=== PATIENT | female | born 1985 | race Caucasian/White ===

== ENCOUNTER 2017-03-23 11:19 | Inpatient (IN) | payer OTHER ==
--- NOTE | 2017-03-23 11:44 | EDPHY ---
H & P Time Seen by Provider: 03/23/17 11:28 HPI/ROS: CHIEF COMPLAINT: Overdose HISTORY OF PRESENT ILLNESS: The patient is a 31-year-old female who was at a rehabilitation facility in [place] and according to the ER doctor there overdosed sometime last night on an unknown amount of aspirin as well as 30-40 tablets of baclofen. Also she is prescribed Pristiq and hydroxyzine but it is not known if she overdosed on these. She had a seizure this morning around 8: 00 a.m. the lasted for about 90 sec. She fell forward and hit her face on the ground. She had a head CT in [place] that was read as negative. She had an elevated aspirin level of 62. She is protecting her airway and slightly tachycardic but otherwise stable. She was given 2 amps of bicarb and then started on a bicarb drip at 2:50 a.m. an hour. She is finishing this now. She had a arterial blood gas drawn with a pH of 7.5 but this was after 2 amps of bicarb. Her acetaminophen and alcohol level were 0. Her LFTs were essentially normal. Her CO2 was low at 16. Her creatinine is normal. Here she is somnolescent but arousable. She is confused and cannot tell me what she took or when. No more seizure-like activity. Afebrile. REVIEW OF SYSTEMS: Unable to obtain secondary to condition EXAM: GENERAL: Somnolecent, moderate distress HEAD: Hematoma and abrasions to forehead and nose EYES: Pupils equal round and reactive to light, extraocular movements intact, sclera anicteric, conjunctiva are normal. ENT: TMs normal, nares patent, oropharynx clear without exudates. Moist mucous membranes. NECK: Normal range of motion, supple without lymphadenopathy or JVD. LUNGS: Breath sounds clear to auscultation bilaterally and equal. No wheezes rales or rhonchi. HEART: Regular rate and rhythm without murmurs, rubs or gallops. ABDOMEN: Soft, nontender, normoactive bowel sounds. No guarding, no rebound. No masses appreciated. BACK: No CVA tenderness, no spinal tenderness, step-offs or deformities EXTREMITIES: Normal range of motion, no pitting or edema. No clubbing or cyanosis. NEUROLOGICAL: Cranial nerves II through XII grossly intact. Normal speech, normal gait. /5 strength, normal movement in all extremities, normal sensation PSYCH: Somnolecent, SKIN: Warm, dry, normal turgor, no visible rashes or lesions. Source: Patient, RN/MD Exam Limitations: Clinical condition - Medical/Surgical History Other PMH: Depression, substance abuse - Family History Significant Family History: No pertinent family hx - Social History Alcohol Use: Occasionally Drug Use: Other Constitutional: Initial Vital Signs Temperature (C) 36.8 C 03/23/17 11:19 Heart Rate 100 03/23/17 11:19 Respiratory Rate 18 03/23/17 11:19 Blood Pressure 104/85 H 03/23/17 11:19 O2 Sat (%) 96 03/23/17 11:19 O2 Delivery Mode Room Air Allergies/Adverse Reactions: amoxicillin Allergy (Verified 03/23/17 11:34) sulfamethoxazole [From Bactrim] Allergy (Verified 03/23/17 11:34) trimethoprim [From Bactrim] Allergy (Verified 03/23/17 11:34) Home Medications: Medication Instructions Recorded Unobtainable 03/23/17 Medical Decision Making - Diagnostics EKG Interpretation: An EKG obtained and was read and documented in trace view. Please see trace view for full reading and report. Sinus rhythm, no interval abnormalities ED Course/Re-evaluation: I spoke with poison control. Her case #[id number]. They recommend q.2 hour aspirin and chemistries. They recommend potassium repletion as needed. They recommend we continue the bicarb drip and a measure urine pH with a goal of 7.5- 8. They recommend continuing the bicarb drip until she has 2 consecutive acetaminophen levels below 30 and she is improving clinically. 12:30 p.m. the patient is awake and alert and talking. She is complaining of difficulty breathing through her nose likely from the seizure and trauma. Her potassium is within normal limits. Will begin rebleeding because of her bicarb drip. I discussed the case with Rossana who accepted to the ICU for Dr. Meyer. I will place the patient on an M1. Rufina he wrote that she was on one but we do not see it. Differential Diagnosis: Partial list of the Differential diagnosis considered include but were not limited to; aspirin overdose, acidosis, seizure, suicidality and although unlikely based on the history and physical exam, I also considered infection, intracranial injury, cervical spine injury. Critical Care Time: Critical care time spent by me, Dr. Whelan exclusive with this patient was 45 minutes, exclusive of the PA time exclusive of procedures. The organ system that was at risk was cardiovascular and I gave IV fluids, consultation, the admission, medication to prevent worsening of the patient's condition - Data Points Laboratory Results: Laboratory Results 03/23/17 11:35 03/23/17 11:35 03/23/17 03/23/17 03/23/17 12:00 11:45 11:35 WBC RBC Hgb Hct MCV MCH MCHC RDW Plt Count MPV Neut % (Auto) Lymph % (Auto) [place] % (Auto) Eos % (Auto) Baso % (Auto) Nucleat RBC Rel Count Absolute Neuts (auto) Absolute Lymphs (auto) Absolute Monos (auto) Absolute Eos (auto) Absolute Basos (auto) Absolute Nucleated RBC Immature Gran % Immature Gran # PT 13.9 SEC SEC (12.0-15.0) INR 1.05 (0.83-1.16) APTT 23.9 SEC SEC (23.0-38.0) Puncture Site LEFT RADIAL Patient Temperature 37.0 DEGREES DEGREES pCO2 28 mmHg L mmHg (34-38) pO2 85 mmHg H mmHg (65-75) Total CO2 23 mEq/L mEq/L (23-27) ABG pH 7.50 H (7.35-7.45) ABG PO2/FiO2 Ratio 0 RATIO RATIO ABG HCO3 22 mEq/L mEq/L (22-26) ABG O2 Saturation 97 % H % (92-95) ABG Base Excess 0.0 mEq/L mEq/L (-2.5-2.5) O2 Concentration % ROOM AIR % % (0-100) Sodium Potassium Chloride Carbon Dioxide Anion Gap BUN Creatinine Estimated GFR Glucose Calcium Total Bilirubin Conjugated Bilirubin Unconjugated Bilirubin AST ALT Alkaline Phosphatase Total Protein Albumin Lipase Beta HCG, Qual Urine pH 7.0 (5.0-7.5) Salicylates Urine Opiates Screen NEGATIVE (NEGATIVE) Acetaminophen Urine Barbiturates NEGATIVE (NEGATIVE) Ur Phencyclidine Scrn NEGATIVE (NEGATIVE) Ur Amphetamine Screen NEGATIVE (NEGATIVE) U Benzodiazepines Scrn NEGATIVE (NEGATIVE) Urine Cocaine Screen NEGATIVE (NEGATIVE) U Marijuana (THC) Screen NEGATIVE (NEGATIVE) Ethyl Alcohol 03/23/17 03/23/1717 11:35 11:35 11:35 WBC 14.23 10^3/uL H 10^3/uL (3.80-9.50) RBC 4.35 10^6/uL 10^6/uL (4.18-5.33) Hgb 13.3 g/dL g/dL (12.6-16.3) Hct 37.8 % L % (38.0-47.0) MCV 86.9 fL fL (81.5-99.8) MCH 30.6 pg pg (27.9-34.1) MCHC 35.2 g/dL g/dL (32.4-36.7) RDW 12.3 % % (11.5-15.2) Plt Count 348 10^3/uL 10^3/uL (150-400) MPV 9.5 fL fL (8.7-11.7) Neut % (Auto) 81.6 % H % (39.3-74.2) Lymph % (Auto) 12.9 % L % (15.0-45.0) [place] % (Auto) 4.6 % % (4.5-13.0) Eos % (Auto) 0.1 % L % (0.6-7.6) Baso % (Auto) 0.3 % % (0.3-1.7) Nucleat RBC Rel Count 0.0 % % (0.0-0.2) Absolute Neuts (auto) 11.62 10^3/uL H 10^3/uL (1.70-6.50) Absolute Lymphs (auto) 1.83 10^3/uL 10^3/uL (1.00-3.00) Absolute Monos (auto) 0.65 10^3/uL 10^3/uL (0.30-0.80) Absolute Eos (auto) 0.02 10^3/uL L 10^3/uL (0.03-0.40) Absolute Basos (auto) 0.04 10^3/uL 10^3/uL (0.02-0.10) Absolute Nucleated RBC 0.00 10^3/uL 10^3/uL (0-0.01) Immature Gran % 0.5 % % (0.0-1.1) Immature Gran # 0.07 10^3/uL 10^3/uL (0.00-0.10) PT INR APTT Puncture Site Patient Temperature pCO2 pO2 Total CO2 ABG pH ABG PO2/FiO2 Ratio ABG HCO3 ABG O2 Saturation ABG Base Excess O2 Concentration % Sodium 149 mEq/L H mEq/L (134-144) Potassium 3.7 mEq/L mEq/L (3.5-5.2) Chloride 113 mEq/L H mEq/L (97-110) Carbon Dioxide 23 mEq/l mEq/l (22-31) Anion Gap 13 mEq/L mEq/L (8-16) BUN 15 mg/dL mg/dL (7-23) Creatinine 0.7 mg/dL mg/dL (0.6-1.0) Estimated GFR > 60 Glucose 103 mg/dL H mg/dL (70-100) Calcium 9.0 mg/dL mg/dL (8.5-10.4) Total Bilirubin 0.2 mg/dL mg/dL (0.1-1.4) Conjugated Bilirubin 0.2 mg/dL mg/dL (0.0-0.5) Unconjugated Bilirubin 0.0 mg/dL mg/dL (0.0-1.1) AST 29 IU/L IU/L (14-46) ALT 51 IU/L IU/L (9-52) Alkaline Phosphatase 64 IU/L IU/L (38-126) Total Protein 6.1 g/dL L g/dL (6.3-8.2) Albumin 3.5 g/dL g/dL (3.5-5.0) Lipase 200 IU/L IU/L (23-300) Beta HCG, Qual NEGATIVE Urine pH Salicylates 47.7 mg/dL H mg/dL (2.0-20.0) Urine Opiates Screen Acetaminophen < 10 mcg/mL L mcg/mL (10-30) Urine Barbiturates Ur Phencyclidine Scrn Ur Amphetamine Screen U Benzodiazepines Scrn Urine Cocaine Screen U Marijuana (THC) Screen Ethyl Alcohol < 10 mg/dL mg/dL (0-10) Medications Given: Sodium Bicarbonate 150 meq/ (Dextrose) 1,000 mls @ 200 mls/hr IV CONT NIDA Stop: 09/19/17 13:29 Last Admin: 03/23/17 13:45 Dose: 1,000 mls Discontinued Medications Potassium Chloride 10 meq/ (Sodium Chloride) 100 mls @ 100 mls/hr IV EDNOW ONE Stop: 03/23/17 13:44 Last Admin: 03/23/17 13:00 Dose: 100 mls Departure - Departure Disposition: [facility] Acute Clinical Impression: Attempted suicide Aspirin overdose Qualifiers: Encounter type: initial encounter Injury intent: intentional self-harm Qualified Code(s): T39.012A - Poisoning by aspirin, intentional self-harm, initial encounter Condition: Critical
[2017-03-23 11:46] LABS: % IMMATURE GRANULYOCYTES 0.5 % (0.0-1.1); ABSOLUTE IMMATURE GRANULOCYTES 0.07 10^3/uL (0.00-0.10); ADD DIFF? NO; ADD MORPH? NO; ADD SCAN? NO; ATYPICAL LYMPHOCYTE FLAG 10 (0-99); FRAGMENT RBC FLAG 0 (0-99); HEMATOCRIT 37.8 % (38.0-47.0); HEMOGLOBIN 13.3 g/dL (12.6-16.3); LEFT SHIFT FLG 0 (0-99); LIPEMIA HEMOLYSIS FLAG 90 (0-99); MEAN CELL HEMOGLOBIN 30.6 pg (27.9-34.1); MEAN CELL HEMOGLOBIN CONCENTR. 35.2 g/dL (32.4-36.7); MEAN CELL VOLUME 86.9 fL (81.5-99.8); MEAN PLATELET VOLUME 9.5 fL (8.7-11.7); PLATELET CLUMPS FLAG 10 (0-99); PLATELET COUNT 348 10^3/uL (150-400); RED BLOOD CELL COUNT 4.35 10^6/uL (4.18-5.33); RED CELL DISTRIBUTION WIDTH 12.3 % (11.5-15.2)
--- NOTE | 2017-03-23 11:53 | CPEKG ---
Heart Rate: 95 RR Interval: 632 P-R Interval: 172 QRSD Interval: 92 QT Interval: 372 QTC Interval: 468 P [place]: 84 QRS [place]: 67 T Wave [place]: 63 EKG Severity - NORMAL ECG - EKG Impression: SINUS RHYTHM Electronically Signed By: Sunny Whelan 23-Mar-2017 12:09:06
[2017-03-23 11:57] LABS: BICARBONATE 22 mEq/L (22-26); MEASURED OXYGEN SATURATION 97 % (92-95); O2 CONCENTRATIION ROOM AIR % (0-100); P/F RATIO 0 RATIO; PCO2 28 mmHg (34-38); PO2 85 mmHg (65-75); TCO2 23 mEq/L (23-27)
[2017-03-23 12:01] LABS: ALANINE AMINOTRANSFERASE 51 IU/L (9-52); ALBUMIN 3.5 g/dL (3.5-5.0); ALKALINE PHOSPHATASE 64 IU/L (38-126); ANION GAP 13 mEq/L (8-16); ASPARTATE AMINOTRANSFERASE 29 IU/L (14-46); BILIRUBIN,TOTAL 0.2 mg/dL (0.1-1.4); BILIRUBIN-CONJUGATED 0.2 mg/dL (0.0-0.5); CARBON DIOXIDE 23 mEq/l (22-31); CHLORIDE 113 mEq/L (97-110); CREATININE 0.7 mg/dL (0.6-1.0); ETHANOL SERUM < 10 mg/dL (0-10); GLOMERULAR FILTRATION RATE > 60; GLUCOSE 103 mg/dL (70-100); INR 1.05 (0.83-1.16); POTASSIUM 3.7 mEq/L (3.5-5.2); PROTIME(PATIENT) 13.9 SEC (12.0-15.0); SODIUM 149 mEq/L (134-144); TOTAL PROTEIN 6.1 g/dL (6.3-8.2)
[2017-03-23 12:02] LABS: APTT 23.9 SEC (23.0-38.0)
[2017-03-23 12:20] LABS: SALICYLATE 47.7 mg/dL (2.0-20.0)
[2017-03-23] MEDS ORDERED: POTASSIUM Cl (KCl) 100 ML IV ONE (12:20)
[2017-03-23] MEDS ORDERED: ACETAMINOPHEN 325 MG TAB PO PRN (12:33)
[2017-03-23] MEDS ORDERED: ONDANSETRON DISINTEGRATING 4 MG TAB PO PRN (12:33)
[2017-03-23] MEDS ORDERED: ONDANSETRON 4 MG/2 ML VIAL IVP PRN (12:33)
[2017-03-23] MEDS ORDERED: POTASSIUM Cl (KCl) 10 MEQ in NS 100 ML IV ONE (12:45)
[2017-03-23] MEDS ORDERED: SODIUM BICARBONATE 150 MEQ in D5W 1,000 ML IV SCH (13:30)
--- NOTE | 2017-03-23 13:37 | GHP ---
[f rep st] HISTORY AND PHYSICAL DATE OF ADMISSION: 03/23/2017 CHIEF COMPLAINT: Overdose. HISTORY OF PRESENT ILLNESS: A 31-year-old female with a longstanding history of depression and per h er report, five previous attempts at suicide using medication who [facility] today [facility] by emergency transport after taking an unknown amount of aspirin as well as 30 to 40 tab lets of baclofen. Patient has also home medications that include Pristiq and hydroxyzine but does no t report having taken those. Her attempts in the past have included aspirin, Tylenol and other medic ation she has been prescribed. She was noted to have a seizure at 8 o'clock this morning that lasted witnessed for approximately 90 seconds. She fell forward, hither face on the ground, was stabilized by EMS and brought to the Emergency Department for evaluation. In the ED, endorsing headache and fa cial discomfort as well as congestion. Denying chest pain, shortness of breath. Denying nausea, abd ominal discomfort, myalgias, arthralgias. PAST MEDICAL HISTORY: 1. Depression with previous suicide attempts. 2. Substance abuse. SOCIAL HISTORY: Patient lives at a rehabilitation facility currently. Smokes daily. Denies alcohol and illicit drugs. FAMILY HISTORY: Positive for a father who had attempted suicide. REVIEW OF SYSTEMS: A 10-point review of systems is negative with the exception of that reported in t he HPI. PHYSICAL EXAMINATION: VITAL SIGNS: Blood pressure 124/71, heart rate 102, respiratory rate 10, 95% on room air, 36.8. GENERAL: This is a young female, lying back in bed. HEENT: Exam is notable for a large bump on her mid forehead which has not developed any discoloration at this point, as well as a hematoma on the bridge of her nose. Mucous membranes appear dry. Eye exam is negative for any ict erus. CARDIAC: Patient is regular rate and rhythm. PULMONARY: Good respiratory effort. Clear to auscultation bilaterally. GASTROINTESTINAL: Positive bowel sounds. ABDOMEN: Soft and nontender. M USCULOSKELETAL: Negative for any lower extremity edema. SKIN: Negative for any rashes. NEUROLOGIC: She seems somnolent but oriented. PSYCHIATRIC: Has a flat affect and appears depressed. DATA: EKG, which I personally reviewed and interpreted, shows sinus rhythm, normal axis, normal inte rvals with no acute ST-T changes. LABORATORY: White count 14.2, hematocrit 37.8 platelets of 384, sodium is 149, chloride 113, creatin ine 0.7, bicarbonate 23. Liver function tests are normal. Lipase is 200. test is negativ e. Salicylate level is 47.7, acetaminophen is less than 10. Alcohol is less than 10 and the rest of her drug screen is negative. ASSESSMENT AND PLAN: This is a 31-year-old female, presenting with intentional salicylate overdose. 1. Acute salicylate overdose. The patient initially presenting without acidosis, was treated alread y with 2 amps of bicarbonate. Will be initiated on a bicarb drip. Three amps per L D5 running at 200 /hour. Will be titrating that drip to a urine pH of 7.5 to 8. Follow q.2 BMP, salicylate levels and urine pHs. Patient is currently protecting her airway. We will continue to monitor in the intensiv e care unit. 2. Intentional suicide attempt. Patient has history of depression with multiple attempts. She has been placed on an M1 hold. Will consult Psychiatry when the patient is medically cleared. 3. Prophylaxis with Lovenox. 4. Diet, regular while she is protecting her airway. DISPOSITION: Expecting greater than 2 midnights. The patient is presenting with a dangerous intenti onal overdose requiring close monitoring of her acid base and then psychiatric evaluation. I have di scussed the case with the Emergency Room physician. Patient will be triaged to the ICU for care. /[id number]/MODL
[2017-03-23 14:32] LABS: ANION GAP 12 mEq/L (8-16); CALCIUM 8.4 mg/dL (8.5-10.4); CARBON DIOXIDE 21 mEq/l (22-31); CHLORIDE 113 mEq/L (97-110); CREATININE 0.8 mg/dL (0.6-1.0); GLOMERULAR FILTRATION RATE > 60; GLUCOSE 91 mg/dL (70-100); POTASSIUM 3.4 mEq/L (3.5-5.2); SODIUM 146 mEq/L (134-144)
[2017-03-23 14:47] LABS: SALICYLATE 48.4 mg/dL (2.0-20.0)
--- NOTE | 2017-03-23 15:22 | PDMN ---
Medical Necessity Medical necessity: Pt meets INPT criteria per MD and [facility] M-153 Drug Ingestion or OD (acute salicylate overdose requiring ICU monitoring, bicarb drip per H&P).
[2017-03-23 17:04] LABS: ANION GAP 12 mEq/L (8-16); CALCIUM 8.5 mg/dL (8.5-10.4); CARBON DIOXIDE 21 mEq/l (22-31); CHLORIDE 112 mEq/L (97-110); CREATININE 0.8 mg/dL (0.6-1.0); GLOMERULAR FILTRATION RATE > 60; GLUCOSE 89 mg/dL (70-100); POTASSIUM 3.6 mEq/L (3.5-5.2); SODIUM 145 mEq/L (134-144)
[2017-03-23] MEDS ORDERED: CHARCOAL/SORBITOL SOLUTION 25 GM/120 ML TUBE PO ONE (18:10)
[2017-03-23] MEDS ORDERED: PROTOCOL POTASSIUM 1 DOSE MISC PRN (18:10)
[2017-03-23] MEDS ORDERED: PROTOCOL MAGNESIUM 1 DOSE IV PRN (18:10)
[2017-03-23] MEDS ORDERED: SODIUM BICARBONATE IV SCH (18:30)
[2017-03-23] MEDS ORDERED: POTASSIUM CL IV SCH (18:30)
[2017-03-23] MEDS ORDERED: D5W IV SCH (18:30)
[2017-03-23 19:10] LABS: ANION GAP 12 mEq/L (8-16); CALCIUM 7.9 mg/dL (8.5-10.4); CARBON DIOXIDE 22 mEq/l (22-31); CHLORIDE 111 mEq/L (97-110); CREATININE 0.9 mg/dL (0.6-1.0); GLOMERULAR FILTRATION RATE > 60; GLUCOSE 85 mg/dL (70-100); POTASSIUM 2.8 mEq/L (3.5-5.2); SODIUM 145 mEq/L (134-144)
[2017-03-23] MEDS ORDERED: POTASSIUM CL 20 MEQ TAB ONE (19:21)
[2017-03-23 19:27] LABS: SALICYLATE 37.1 mg/dL (2.0-20.0)
[2017-03-23] MEDS ORDERED: POTASSIUM CL 20 MEQ TAB PO ONE ×2 (19:30→22:00)
[2017-03-23 21:21] LABS: ANION GAP 11 mEq/L (8-16); CALCIUM 8.4 mg/dL (8.5-10.4); CARBON DIOXIDE 23 mEq/l (22-31); CHLORIDE 111 mEq/L (97-110); CREATININE 0.9 mg/dL (0.6-1.0); GLOMERULAR FILTRATION RATE > 60; GLUCOSE 95 mg/dL (70-100); POTASSIUM 2.9 mEq/L (3.5-5.2); SALICYLATE 34.2 mg/dL (2.0-20.0); SODIUM 145 mEq/L (134-144)
[2017-03-23 23:32] LABS: ANION GAP 9 mEq/L (8-16); CARBON DIOXIDE 24 mEq/l (22-31); CHLORIDE 109 mEq/L (97-110); CREATININE 0.9 mg/dL (0.6-1.0); GLOMERULAR FILTRATION RATE > 60; GLUCOSE 99 mg/dL (70-100); POTASSIUM 3.1 mEq/L (3.5-5.2); SALICYLATE 25.5 mg/dL (2.0-20.0); SODIUM 142 mEq/L (134-144)
[2017-03-24] MEDS ORDERED: POTASSIUM CL 20 MEQ TAB PO ONE ×2 (00:15→08:22)
[2017-03-24 02:12] LABS: ANION GAP 9 mEq/L (8-16); CALCIUM 7.9 mg/dL (8.5-10.4); CARBON DIOXIDE 26 mEq/l (22-31); CHLORIDE 109 mEq/L (97-110); CREATININE 0.9 mg/dL (0.6-1.0); GLOMERULAR FILTRATION RATE > 60; GLUCOSE 97 mg/dL (70-100); POTASSIUM 3.3 mEq/L (3.5-5.2); SALICYLATE 18.4 mg/dL (2.0-20.0); SODIUM 144 mEq/L (134-144)
[2017-03-24] MEDS ORDERED: POTASSIUM CL 10 MEQ TAB PO ONE (02:45)
--- NOTE | 2017-03-24 04:31 | GCON ---
[f rep st] CONSULTATION PULMONARY/CRITICAL CARE CONSULTATION REASON FOR CONSULTATION: Salicylate overdose, suicide attempt. HISTORY: The patient is a 31-year-old with a history of depression and previous suicide attempts. She has been at [facility] and other facilities previously. She took an unknown amount of aspirin and baclofen today. She apparently had a seizure earlier this morning. She did strike her face with this. She was brought to the emergency department by the paramedics. She has been somnolent but is less so throughout the day, arousable, and responsive. She has been treated with a bicarbonate drip. She has not gotten any charcoal to this point secondary to concerns about swallowing. PAST MEDICAL HISTORY: Remarkable for depression. There is a history of substance abuse. DRUG ALLERGIES: Sulfa preparations, amoxicillin, trimethoprim. SOCIAL HISTORY: The patient lives in a rehabilitation facility. She has a supportive mother, who is here with her. She smokes cigarettes daily. Alcohol and drugs are denied. FAMILY HISTORY: Positive for depression and suicide in her father. REVIEW OF SYSTEMS: A 10-point review of systems is negative except as mentioned above. PHYSICAL EXAMINATION: GENERAL: Reveals a young woman who initially is covering herself up. VITAL SIGNS: Blood pressure is 90/55, heart rate 95 with sinus rhythm on the monitor. Respiratory rate is 16. She is afebrile. She is requiring no oxygen. HEENT: Remarkable for minor trauma over her nose and some minor abrasions on her face. Pupils appear equal. Mucous membranes are dry. NECK: There is no jugular venous distention, lymphadenopathy, or thyromegaly. CHEST: Clear bilaterally. There are no rales. HEART: Mildly hyperdynamic. There is a soft systolic murmur; no gallops. ABDOMEN: Soft and nontender. Bowel sounds are present, but diminished. A Yeboah catheter is in place. Urine output is good. NEUROLOGIC: Nonfocal. She moves all extremities equally, arouses, answers questions, and responds appropriately to commands. DATABASE: Salicylate level on admission was 47. Serial values have grown slightly, 48 and most recently 52. Tox screen is otherwise negative. Acetaminophen is negative. White blood cell count is 14,000, hematocrit 37, platelets 348,000. PT and PTT were normal on admission. Arterial blood gas showed a pH of 7.50, pCO2 of 28, and pO2 of 85 on room air. Bicarbonate was 23. Most recent chemistry shows sodium of 145, potassium of 3.6, CO2 of 21 with a chloride of 112. BUN is 15 with creatinine 0.8. Liver function studies were normal. Urine pH is 7. ASSESSMENT: 1. Drug overdose. The patient has taken an intentional drug overdose, including salicylates. This is a significant overdose, with elevation of salicylate levels and a seizure prior to her arrival in the hospital. She has a respiratory alkalosis and a mild metabolic acidosis consistent with her salicylate ingestion. She is on a bicarbonate drip. Placing potassium in this drip is recommended by Poison Control. Also, Poison Control is recommending charcoal for the possibility of retained gastric aspirin tablets in light of her rising levels. Now that she is waking up and can take oral fluids safely, charcoal can be given. 2. Suicide attempt. She has a long history of depression and previous suicide attempts. She is on an M1 hold. 3. Metabolic: Hypokalemia. Potassium will be placed in her IV, and she will be put on the replacement protocol. 4. Deep vein thrombosis prophylaxis: On enoxaparin. 5. Gastrointestinal prophylaxis: None currently. Pantoprazole will be added. PLAN/RECOMMENDATIONS: Please see the comments above. The patient will be kept in the intensive care unit on an M1 hold. A bicarbonate drip will be continued. Potassium will be added to this. Potassium supplementation will be given per protocol, in addition to the IV potassium. Charcoal will be given now that she is taking orals safely. Electrolytes will be monitored every 2 hours, along with a salicylate level and urine pH. A chest x-ray will be obtained in the a.m. Further plans and recommendations will be made based on her progress over the next 12-24 hours. /[id number]/MODL and [id number], 03/23/17, [address] [facility]
[2017-03-24] MEDS: HYDROCODONE/APAP 5/325 TAB PO PRN ×4 (05:08→21:35)
[2017-03-24 05:18] LABS: % IMMATURE GRANULYOCYTES 0.2 % (0.0-1.1); ABSOLUTE IMMATURE GRANULOCYTES 0.02 10^3/uL (0.00-0.10); ADD DIFF? NO; ADD MORPH? NO; ADD SCAN? NO; ATYPICAL LYMPHOCYTE FLAG 40 (0-99); FRAGMENT RBC FLAG 0 (0-99); HEMATOCRIT 34.7 % (38.0-47.0); HEMOGLOBIN 12.3 g/dL (12.6-16.3); LEFT SHIFT FLG 0 (0-99); LIPEMIA HEMOLYSIS FLAG 90 (0-99); MEAN CELL HEMOGLOBIN 31.4 pg (27.9-34.1); MEAN CELL HEMOGLOBIN CONCENTR. 35.4 g/dL (32.4-36.7); MEAN CELL VOLUME 88.5 fL (81.5-99.8); MEAN PLATELET VOLUME 9.5 fL (8.7-11.7); PLATELET CLUMPS FLAG 0 (0-99); PLATELET COUNT 278 10^3/uL (150-400); RED BLOOD CELL COUNT 3.92 10^6/uL (4.18-5.33); RED CELL DISTRIBUTION WIDTH 12.7 % (11.5-15.2)
[2017-03-24 05:27] LABS: ANION GAP 9 mEq/L (8-16); CALCIUM 7.9 mg/dL (8.5-10.4); CARBON DIOXIDE 26 mEq/l (22-31); CHLORIDE 107 mEq/L (97-110); CREATININE 0.8 mg/dL (0.6-1.0); GLOMERULAR FILTRATION RATE > 60; GLUCOSE 110 mg/dL (70-100); MAGNESIUM 1.9 mg/dL (1.6-2.3); POTASSIUM 3.8 mEq/L (3.5-5.2); SODIUM 142 mEq/L (134-144)
[2017-03-24 08:01] LABS: POTASSIUM 3.6 mEq/L (3.5-5.2)
[2017-03-24] MEDS ORDERED: ENOXAPARIN 40 MG/0.4 ML SYR SC SCH (09:00)
--- NOTE | 2017-03-24 09:51 | ASMTCASEMG ---
Living Arrangements What is your living Answers: Alone arrangement? Who do you live with? Type Of Residence What kind of residence do Answers: Correction you live in? Type of Residence Facility Name Notes: Patient reports living in a rehabilitation facility presently. Discharge Plan Comments Coordination Status Comments Notes: Patient is a 31yo female with a longstanding hx of depression and 5 previous suicide attempts using medication. Patient was brought by ambulance from her rehab facility for taking an unknown amount of aspirin as well as 30-40 tablets of baclofen. Patient is on an M1 hold. When medically clear, patient will get a psych eval. Most likely patient will d/c to a behavioral health unit. CM available if d/c needs arise. Date Signed: 03/24/2017 09:51 AM Electronically Signed By:Maria Eugenia Quigley LCSW
[2017-03-24 12:54] LABS: ANION GAP 9 mEq/L (8-16); CALCIUM 8.5 mg/dL (8.5-10.4); CARBON DIOXIDE 24 mEq/l (22-31); CHLORIDE 109 mEq/L (97-110); CREATININE 0.8 mg/dL (0.6-1.0); GLOMERULAR FILTRATION RATE > 60; GLUCOSE 96 mg/dL (70-100); POTASSIUM 4.4 mEq/L (3.5-5.2); SALICYLATE 3.1 mg/dL (2.0-20.0); SODIUM 142 mEq/L (134-144)
--- NOTE | 2017-03-24 13:35 | PDINTPN ---
Firmware Architect Progress Note Assessment/Plan: Assessment: Suicide attempt, depression. On M1 hold. Aspirin overdose, resolving. Hypokalemia: On replacement protocol. Plan: Continue care in the intensive care unit for now on M1 hold. Stop bicarb drip. Continue to follow electrolytes and aspirin level. If if her aspirin level stays down and electrolytes stable she can perhaps be medically cleared later today for evaluation by Psychiatry. 25 min of critical care time spent directly with the patient. Discussed with the patient's mother, the patient, hospitalist, nursing, and the ICU multi disciplinary team. Subjective: Feels better, still not hungry. Denies pain, denies shortness of breath. Objective: Vital Signs Temp Pulse Resp BP Pulse Ox 36.7 C 85 12 99/63 L 95 03/24/17 12:00 03/24/17 12:00 03/24/17 12:00 03/24/17 12:00 03/24/17 12:00 Laboratory Results 03/24/17 05:00 03/24/17 12:00 03/23/17 03/24/17 03/25/17 05:59 05:59 05:59 Intake Total 3142 Output Total 2275 Balance 867 PT 13.9 SEC (12.0-15.0) 03/23/17 11:35 INR 1.05 (0.83-1.16) 03/23/17 11:35 Laboratory Tests 03/24/17 03/24/17 03/24/17 01:50 12:00 12:00 Urine pH 9.0 H Salicylates 18.4 3.1 Physical Exam - Physical Exam General Appearance: alert, no apparent distress EENT: PERRL/EOMI Neck: normal inspection Respiratory: lungs clear, normal breath sounds Cardiac/Chest: regular rate, rhythm Abdomen: normal bowel sounds, non-tender, soft Pelvic Exam: other (Yeboah catheter in place, to come out) Skin: normal color, warm/dry Extremities: No pedal edema Neuro/Psych: no motor/sensory deficits, No cognition abnormalities ICD10 Worksheet Patient Problems: Problems Problem Status Onset Aspirin overdose Acute Attempted suicide Acute
--- NOTE | 2017-03-24 15:04 | ASMTCMCOM ---
CM Note CM Note Notes: Spoke with Telma Campuzano, RN at [facility] where Bridgett was living when she took the overdose. Telma called to let us know they cannot take the patient back due to her mental health issues. Telma also asked if Baclofen showed up in any of her labs. We did not run any tests for this. Telma was concerned if this medicine was in her system, she may have gotten it from their safe.She was informed we could not verify Baclofen in her system. Telma stated her case management staff would help with finding placement for patient. However, patient will most likely leave the hospital and go to a behavioral health program. Telma's number ([phone]). The case management phone numbers are [phone] and/or [phone]. [facility] is located in [place]. CM will follow. Date Signed: 03/24/2017 03:04 PM Electronically Signed By:Maria Eugenia Quigley LCSW
[2017-03-24 15:38] LABS: ANION GAP 7 mEq/L (8-16); CALCIUM 8.4 mg/dL (8.5-10.4); CARBON DIOXIDE 22 mEq/l (22-31); CHLORIDE 111 mEq/L (97-110); CREATININE 0.7 mg/dL (0.6-1.0); GLOMERULAR FILTRATION RATE > 60; GLUCOSE 101 mg/dL (70-100); POTASSIUM 4.5 mEq/L (3.5-5.2); SALICYLATE 1.1 mg/dL (2.0-20.0); SODIUM 140 mEq/L (134-144)
--- NOTE | 2017-03-24 16:20 | HOSPPROG ---
Hospitalist Progress Note Assessment/Plan: # acute intentional aspirin overdose- presented with salicylate level >50- oxygen saturations 94% on room air Telemetry(personally reviewed and interpreted) sinus rhythm Has been treated with bicarb drip overnight and close monitoring- salicylate level 1.1 currently - will DC bicarb drip - medically clear for psychiatric evaluation # suicide attempt- this patient has had multiple suicide attempts using medications in the past - medically clear - will consult Psychiatry now # head trauma- secondary to seizure fall with overdose- CT head negative for intracranial process - continue p.r.n. med # diet-regular # disposition greater than 2 midnights presents acutely ill requiring ICU monitoring for salicylate overdose I have discussed case with Dr. Uribe we will medically clear the patient for psychiatric evaluation Subjective: Denies pain Objective: Vital Signs Temp Pulse Resp BP Pulse Ox 36.7 C 84 18 95/60 L 96 03/24/17 12:00 03/24/17 14:00 03/24/17 14:00 03/24/17 14:00 03/24/17 14:00 Laboratory Results 03/24/17 05:00 03/24/17 15:10 03/23/17 03/24/17 03/25/17 05:59 05:59 05:59 Intake Total 3142 Output Total 2275 Balance 867 PT 13.9 SEC (12.0-15.0) 03/23/17 11:35 INR 1.05 (0.83-1.16) 03/23/17 11:35 - Physical Exam Constitutional: no apparent distress Eyes: anicteric sclera Ears, Nose, Mouth, Throat: moist mucous membranes Cardiovascular: regular rate and rhythym Respiratory: no respiratory distress Gastrointestinal: normoactive bowel sounds Genitourinary: no bladder fullness Skin: warm Musculoskeletal: No asymmetric calves Neurologic: AAOx3 Psychiatric: depressed, flat affect Lymph, Heme, Immunologic: no cervical LAD ICD10 Worksheet Patient Problems: Problems Problem Status Onset Aspirin overdose Acute Attempted suicide Acute
[2017-03-24 21:01] VITALS: BP 116/71; PULSE 81; RESP 15; TEMP 98.3; O2SAT 95
== END 2017-03-25 00:40 | DRG 918 ==
LOC: EDUNIT# → EEVIPCON 12:31 → F2N 13:45
PROVIDERS: ADMIT Student in an Organized Health Care Education/Training Program; ATTEND Student in an Organized Health Care Education/Training Program
DX: T39.012A Poisoning by aspirin, intentional self-harm, initial encounter (principal); E87.2 Acidosis; T42.8X2A Poisoning by antiparkinsonism drugs and other central muscle-tone depressants, intentional self-harm, initial encounter; F32.9 Major depressive disorder, single episode, unspecified; T39.092A Poisoning by salicylates, intentional self-harm, initial encounter; E87.6 Hypokalemia; Z72.0 Tobacco use
CPT/HCPCS: 80305; G0480; J1650

== ENCOUNTER 2017-03-25 01:00 | Inpatient (IN) | payer OTHER ==
[2017-03-25] MEDS ORDERED: NICOTINE POLACRILEX 2 MG GUM B PRN (01:21)
[2017-03-25] MEDS ORDERED: MAGNESIUM HYDROXIDE 30 ML UDCUP PO PRN (01:21)
[2017-03-25] MEDS ORDERED: LORazepam 0.5 MG TAB PO PRN (01:22)
[2017-03-25] MEDS ORDERED: MAG HYDROX/AL HYDROX/SIMETH 30 ML UDCUP PO PRN (01:22)
[2017-03-25] MEDS ORDERED: IBUPROFEN 200 MG TAB PO PRN (01:23)
[2017-03-25] MEDS: ACETAMINOPHEN 325 MG TAB PO PRN ×3 (01:28→18:22)
[2017-03-25] MEDS: FERROUS SULFATE 325 MG TAB PO SCH ×2 (12:14→20:39)
[2017-03-25] MEDS: FOLIC ACID 1 MG TAB PO SCH (12:14)
[2017-03-25] MEDS ORDERED: SENNOSIDES/DOCUSATE SODIUM TAB PO PRN (12:41)
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
[2017-03-25] MEDS: NICOTINE 21 MG/24 HR PATCH TD SCH (13:16)
--- NOTE | 2017-03-25 14:16 | BCON ---
[f rep ] BEHAVIORAL HEALTH CONSULTATION INTERNAL MEDICINE CONSULTATION DATE OF CONSULTATION: 03/25/2017 REFERRING PHYSICIAN: Amina Wang MD REASON FOR REFERRAL: Medical clearance for inpatient behavioral health stay. HISTORY OF PRESENT ILLNESS: This patient was at a sober living facility in [place] when she overdosed on aspirin and baclofen. She had a fall, hit her head and had a seizure, I am not sure in what order. She had brain imaging done reportedly in [place] which ruled out any bleed or significant fractures and came to [facility] for treatment of the overdose. In the hospital , she was treated with a bicarbonate drip for the aspirin overdose and with activated charcoal. Her salicylate level came down to normal and she was considered medically stable and appropriate for transfer to inpatient Behavioral Health. She is currently without any acute complaints other than having a desire to smoke a cigarette and she reports that it is painful for her to chew the nicotine gum due to her head trauma. PAST MEDICAL HISTORY: 1. Depression with previous suicide attempts. 2. Polysubstance abuse. 3. Irritable bowel syndrome. MEDICATIONS: 1. Pristiq. 2. Hydroxyzine. PAST SURGICAL HISTORY: She denies any history of surgeries. SOCIAL HISTORY: She is a regular heavy alcohol user with her last use on 2016. She is a heavy smoker. She uses marijuana sporadically and has a history of using psychedelic drugs and cocaine. Her last cocaine use was December 24, 2016. FAMILY HISTORY: Alcoholism in her father, as well as IV drug abuse, bipolar disorder and depression in her mother. REVIEW OF SYSTEMS: She currently denies any symptoms of overdose or withdrawal. She denies feeling shaky or sweaty. She acknowledges some psychomotor agitation, but reports this is normal for her. She denies any sleepiness or alteration of consciousness at present. She has a tobacco craving. She has some pain in her face and especially frontal teeth. Otherwise , she is not in pain. She has constipation for several days and reports a history of irritable bowel syndrome. She has a normal appetite. She has not had recent weight loss or weight gain. Otherwise, a 10-point review of systems is negative. PHYSICAL EXAM: VITAL SIGNS: Blood pressure is 120/79, heart rate is 85, respiratory rate is 16, oxygen saturation is 96% on room air, temperature is 36.4 degrees centigrade. Her weight is 63.5 kg for a body mass index of 24. GENERAL: This is a well-nourished, well-developed woman sitting in a chair, visiting with her mother, cooperative and in no acute distress. HEENT: Extraocular movements are intact. Pupils are equal, round, reactive to light. Mucous membranes are moist. Dentition is in good condition. She has ecchymoses under her eyes bilaterally and across the bridge of her nose. NECK: Supple. HEART: Regular rate and rhythm with no murmurs, rubs, or gallops. LUNGS: Clear to auscultation bilaterally. ABDOMEN: Benign. EXTREMITIES: There is no cyanosis, clubbing, or edema. NEUROLOGIC: She is alert and oriented x3. Cranial nerves 2-12 are grossly intact. There is no focal weakness. Sensation is intact to light touch. She has a continual tremor versus psychomotor agitation in her legs which she can volitionally stop. LAB STUDIES: Most recently from her hospitalization: CBC showed mild anemia, likely due to hydration with a hemoglobin of 12.3 and hematocrit of 34.7 otherwise was normal. Coagulation studies were normal. Blood gas showed a low pCO2 and elevated pO2. She was mildly alkalotic. Serum chemistry initially showed an elevated sodium on 03/23 at 149. Liver function tests were within normal limits and beta hCG was negative. She developed some hypokalemia, likely due to the sodium bicarbonate infusion with a tere of 2.8, which was repleted and yesterday renal function and electrolytes showed a slightly elevated carbon dioxide and chloride at 111 and otherwise were overall within normal limits. Glucose was high at 101 but was likely not fasting. Her urine pH was followed and eventually became alkaline on 03/24 and toxicology screen showed salicylates initially at 47.7 mg/dL, this increased over several hours to 52 and then decreased and most recently on 03/24/2017, salicylate level was subtherapeutic at 1.1. IMPRESSION AND RECOMMENDATIONS: 1. Mental health issues. Pending further evaluation and management per Psychiatry and the mental health team. 2. Intentional overdose. She has received sodium bicarbonate and her salicylate level is likely 0 by now. She had seizures, and depressed level of consciousness which may have been caused by the baclofen and these have resolved and she is now clear of any toxic consequences of the intentional overdose. 3. Polysubstance abuse including alcohol dependence and abuse. She has apparently been sober for some time in her sober living environment and most likely will benefit from continued attention to substance abuse. 4. Tobacco dependence syndrome. She reports that she has quit for about a year in the past but then resume smoking. She was encouraged to continue efforts at smoking cessation. 5. Constipation. I will prescribe senna/docusate 1 2 tablets b.i.d. p.r.n. The constipation may be related to irritable bowel syndrome, but also is likely a consequence of treatment with activated charcoal. It is unlikely that she will need more than 1 or 2 doses. 6. Possible hyperthyroidism. A TSH was drawn on 01/01/2017 apparently while she was inpatient at [facility]. Her level was 0.115 micro international units per mL, which is moderately suppressed but still detectable. At that time , she had a normal free T4. I see that these laboratories have been repeated and I will follow along to assist in management in case she has shilpi hyperthyroidism. I see no medical contraindications to this patient's continued stay at the inpatient behavioral health unit or to any psychiatric medications or procedures. Thank you very much for including me in the care of this patient and please do not hesitate to contact me or the hospitalist service should there be need for further medical evaluation. /[id number]/MODL MTDD
[2017-03-25] MEDS: LITHIUM CARBONATE 300 MG TAB PO SCH (20:38)
[2017-03-25] MEDS: hydrOXYzine HCL 25 MG TAB PO SCH (20:39)
[2017-03-25] MEDS: MIRTAZAPINE 15 MG TAB PO SCH (20:39)
[2017-03-25] MEDS ORDERED: LITHIUM CARBONATE 300 MG CAP PO SCH (21:00)
[2017-03-25] MEDS: MELATONIN 3 MG TAB PO PRN (21:40)
[2017-03-26] MEDS: ACETAMINOPHEN 325 MG TAB PO PRN ×3 (07:01→20:54)
[2017-03-26] MEDS: NALTREXONE HCL 50 MG TAB PO SCH (08:10)
[2017-03-26] MEDS: LITHIUM CARBONATE 300 MG TAB PO SCH ×2 (08:11→20:49)
[2017-03-26] MEDS: FERROUS SULFATE 325 MG TAB PO SCH ×2 (08:11→20:49)
[2017-03-26] MEDS: FOLIC ACID 1 MG TAB PO SCH (08:11)
[2017-03-26] MEDS: hydrOXYzine HCL 25 MG TAB PO PRN ×2 (08:11→20:50)
[2017-03-26] MEDS: NICOTINE 21 MG/24 HR PATCH TD SCH (08:12)
--- NOTE | 2017-03-26 13:30 | SOAPPROG ---
SOAP Progress Note Assessment/Plan: Assessment: 31 yo SWF who took OD of ASA and Baclofen in sober living house in [place]. 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 She was inpatient at [facility] in 12/2016 for similar OD episode. Plan: 03/26/17 13:27 1. D/C LOS, patient is able to contract for safety, states, "I wouldn't do anything to hurt myself in hospital." Patient has been cooperative, appropriate and there have been no unsafe behaviors. 2. Increase Vistaril to 50mg per patient request but change frequency to Q8HRS b /c patient says she only wants to take it "at lunch and at bedtime." 3. CCM - patient still depressed Subjective: Met with patient, reviewed chart and d/w staff. Patient presents sad, depressed , psychomotor retardation. However, in 1:1 conversation, she is slightly more interactive and engaged. She denies any SE's or physical complaints since starting [place]. She denies any SI, intent or plan in hospital. She says, "I can't really do anything here" and "I would never try anything while I'm in the hospital." Patient says she does still think about OD or carbon monoxide poisoning "if I go back to my house." But says she would feel "much safer" going to a residential or inpatient program. Objective: Vital Signs Temp Pulse Resp BP Pulse Ox 36.9 C 78 14 112/69 96 03/26/17 06:00 03/26/17 06:00 03/26/17 06:00 03/26/17 06:00 03/26/17 06:00 MSE: Affect: Flat Mood: "Depressed" TP: Linear TC: No SI/HI at current time, no AH/VH Insight/Judgment: Poor - Time Spent With Patient Time Spent With Patient: 25" - Pending Discharge Pending Discharge Within 24 Hours: No Pending Discharge Within 48 Hours: No ICD10 Worksheet Patient Problems: Problems Problem Status Onset Borderline personality disorder Acute Major depressive disorder, recurrent episode, severe with mixed features Acute Posttraumatic stress disorder Acute Aspirin overdose Acute Attempted suicide Acute
[2017-03-26] MEDS: MIRTAZAPINE 15 MG TAB PO SCH (20:49)
[2017-03-26] MEDS: hydrOXYzine HCL 25 MG TAB PO SCH (20:50)
[2017-03-26] MEDS: MELATONIN 3 MG TAB PO PRN (23:32)
[2017-03-27] MEDS: FERROUS SULFATE 325 MG TAB PO SCH ×2 (08:40→19:41)
[2017-03-27] MEDS: NALTREXONE HCL 50 MG TAB PO SCH (08:40)
[2017-03-27] MEDS: LITHIUM CARBONATE 300 MG TAB PO SCH ×2 (08:40→19:41)
[2017-03-27] MEDS: NICOTINE 21 MG/24 HR PATCH TD SCH (08:41)
[2017-03-27] MEDS: FOLIC ACID 1 MG TAB PO SCH (08:41)
[2017-03-27] MEDS: hydrOXYzine HCL 25 MG TAB PO PRN ×2 (11:37→19:44)
[2017-03-27] MEDS: ACETAMINOPHEN 325 MG TAB PO PRN (11:37)
--- NOTE | 2017-03-27 11:56 | SOAPPROG ---
SOAP Progress Note Assessment/Plan: Assessment: 31 yo SWF who took OD of ASA and Baclofen in sober living house in [place]. 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 She was inpatient at [facility] in 12/2016 for similar OD episode. Plan: 03/26/17 13:27 1. D/C LOS, patient is able to contract for safety, states, "I wouldn't do anything to hurt myself in hospital." Patient has been cooperative, appropriate and there have been no unsafe behaviors. 2. Increase Vistaril to 50mg per patient request but change frequency to Q8HRS b /c patient says she only wants to take it "at lunch and at bedtime." 3. CCM - patient still depressed 03/27/17 11:47 1. CCM - patient still has SI, but has no intent or plan to hurt herself in hospital, able to contract for safety 2. Patient unclear whether she wants residential substance use disorder tx after d/c Subjective: Met with patient, reviewed chart and d/w staff. Patient presents very adamson and critical today. She says she "never should have been sent here." She blames SW in ED for admitting her to [facility], b/c patient says she told [facility] she wanted to "go to [facility] or [facility]." Patient is under the impression that either of these facilities have longer term inpatient or residential treatment for dual diagnosis. MD attempted to explain this wasn't the case, that both [facility] and [facility] are acute inpatient hospitals like [facility]. [facility] does have CD-IOP and [facility] has PHP and MH-IOP, but patient isn't interested in outpatient treatment. She says she needs to be in controlled environment long- term in order not to use alcohol and drugs. MD suggested she consider programs like [facility] (but says she can't go back there d/t ), the [facility] in [place] or [facility] in [place]. Patient is ambivalent about residential tx b/c she says, "I just did the program at [facility]." She told [facility], that she might go live with her family in [place], however, that would mean she would likely lose her RN license. She says she's lost her RN license in [place] before d/ t substance use. Another option is to go stay with ex-boyfriend, but she's unable to explain how that would be safe for her given the fact she claims she can only be safe in a facility where she doesn't have access to alcohol and pills to OD. Objective: Vital Signs Temp Pulse Resp BP Pulse Ox 36.7 C 67 14 105/53 L 96 03/27/17 06:00 03/27/17 06:00 03/27/17 06:00 03/27/17 06:00 03/27/17 06:00 MSE: Affect: Flat Mood: "Depressed" TP: Linear, goal-directed TC: Has SI, but denies intent or plan to hurt herself in hospital, no AH/VH Insight/ Judgment: Poor - Time Spent With Patient Time Spent With Patient: 25" - Pending Discharge Pending Discharge Within 24 Hours: No Pending Discharge Within 48 Hours: No ICD10 Worksheet Patient Problems: Problems Problem Status Onset Borderline personality disorder Acute Major depressive disorder, recurrent episode, severe with mixed features Acute Posttraumatic stress disorder Acute Aspirin overdose Acute Attempted suicide Acute
[2017-03-27] MEDS ORDERED: hydrOXYzine HCL 25 MG TAB PO PRN (11:59)
[2017-03-27] MEDS: MIRTAZAPINE 15 MG TAB PO SCH (19:41)
[2017-03-27] MEDS: MELATONIN 3 MG TAB PO PRN (22:45)
[2017-03-28 06:02] VITALS: O2SAT 97
--- NOTE | 2017-03-28 09:22 | SOAPPROG ---
SOAP Progress Note Assessment/Plan: Assessment: Major Depressive Disorder, recurrent, severe with mixed features PTSD Borderline PD History of Alcohol Use Disorder - on Naltrexone History of stimulant and cannabis use disorders Recent concussion and seizure following Aspirin/Baclofen OD. 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 Patient has a history of numerous suicide attempts and has severe stressors. Patient has failed to respond to multiple antidepressant trials. Patient appears less dysphoric and preoccupied today but had SI to OD over the weekend. Plan: Continue Remeron 15mg QHS and Vistaril 50mg QHS for depression, PTSD, insomnia Increase [place] 300mg BID Check AM lithium level (risk of lithium toxicity on low dose lithium due to recent ASA overdose) Monitor mood stability, risk of self-harm Refer to [facility], explore sober living programs or substance abuse recovery [facility] programs 03/28/17 09:27 Subjective: "A little better this morning" Patient reports over weekend feeling depressed, hopeless, and having suicidal thoughts to OD if discharged. Reports over the weekend having brief mood swings , racing thoughts, and irritability. Reports this AM feeling more calm. Reports fear of relapse on alcohol and self-harming behaviors if discharged. Reports she is unsure if she wants to go into a sober living program or return to live with BF and their dog. Reports BF is sober and not violent or abusive. Reports no side effects from [place] so far, denies feeling sedated or tired. Reports soreness on forehead. Reports she remembers vomiting and blacking out in a clinic in [place], later awoke in ER and was told she fell, hit her head, and had a seizure. Reports feeling less confused and 'more clear headed' today. Objective: Vital Signs Temp Pulse Resp BP Pulse Ox 36.6 C 98 16 112/75 97 03/28/17 06:00 03/28/17 06:00 03/28/17 06:00 03/28/17 06:00 03/28/17 06:00 Alert WF. [place] under eyes, small swelling forehead. No tremors or weakness. Calm and cooperative. Affect anxious, dysphoric at times but more alert and less preoccupied than previous. Thoughts organized. Reports over weekend having SI with thoughts of overdosing if discharged. Denies SI this AM. Denies violent thoughts or AH or paranoia. Fair insight, poor judgment. Staff reports over weekend patient was dysphoric and irritable at times but cooperative with medication, isolative to room. TSH 2.6, FT4 0.59 - Time Spent With Patient Time Spent With Patient: 30 minutes - Pending Discharge Pending Discharge Within 24 Hours: No Pending Discharge Within 48 Hours: Yes Pending Discharge Date: 03/30/17 Pending Discharge Time: 11:00 ICD10 Worksheet Patient Problems: Problems Problem Status Onset Borderline personality disorder Acute Major depressive disorder, recurrent episode, severe with mixed features Acute Posttraumatic stress disorder Acute Aspirin overdose Acute Attempted suicide Acute
[2017-03-28] MEDS: FOLIC ACID 1 MG TAB PO SCH (10:12)
[2017-03-28] MEDS: NALTREXONE HCL 50 MG TAB PO SCH (10:12)
[2017-03-28] MEDS: FERROUS SULFATE 325 MG TAB PO SCH ×2 (10:12→18:21)
[2017-03-28] MEDS: NICOTINE 21 MG/24 HR PATCH TD SCH (10:13)
[2017-03-28] MEDS: LITHIUM CARBONATE 300 MG TAB PO SCH ×2 (10:14→18:22)
[2017-03-28] MEDS: hydrOXYzine HCL 25 MG TAB PO PRN (18:22)
[2017-03-28] MEDS: MIRTAZAPINE 15 MG TAB PO SCH (18:22)
[2017-03-28] MEDS: MELATONIN 3 MG TAB PO PRN (21:49)
[2017-03-29] MEDS: LITHIUM CARBONATE 300 MG TAB PO SCH ×2 (09:44→20:09)
[2017-03-29] MEDS: FOLIC ACID 1 MG TAB PO SCH (09:44)
[2017-03-29] MEDS: NALTREXONE HCL 50 MG TAB PO SCH (09:44)
[2017-03-29] MEDS: NICOTINE 21 MG/24 HR PATCH TD SCH (09:44)
[2017-03-29] MEDS: FERROUS SULFATE 325 MG TAB PO SCH ×2 (09:44→20:09)
[2017-03-29 11:31] LABS: LITHIUM 0.5 mEq/L (0.6-1.2)
--- NOTE | 2017-03-29 11:57 | SOAPPROG ---
SOAP Progress Note Assessment/Plan: Assessment: Major Depressive Disorder, recurrent, severe with mixed features PTSD Borderline PD History of Alcohol Use Disorder - on Naltrexone History of stimulant and cannabis use disorders Recent concussion and seizure following Aspirin/Baclofen OD. 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 Patient has a history of numerous suicide attempts and has severe stressors. Patient has failed to respond to multiple antidepressant trials. Patient appears to has labile affect and brief SI with plan yesterday PM. Plan: Continue Remeron 15mg QHS and Vistaril 50mg QHS for depression, PTSD, insomnia Increase [place] 300mg QAM, 150mg Q13:00, 300mg QHS; recheck level 03/31 Monitor mood stability, risk of self-harm Refer to [facility] and [facility] Coordinate discharge planning with mother and brothers Discussed monitoring thoughts, emotions and discussed coping skills to use if having thoughts of self-harm 03/29/17 12:00 Subjective: CC: "depressed a lot yesterday, unsure why" Patient reports yesterday feeling calm in morning and mid-day but in afternoon developed hopelessness and brief suicidal thoughts to get a gun to shoot self. Reports this AM feeling less depressed and less hopeless. Reports some brief intense mood swings 'difficult to explain.' Denies headache, visual changes, or weakness in arms or legs; denies tremors or diarrhea or nausea. Reports pattern in past 3 days of feeling improved in AM and mid-day, then feeling irritable in late afternoon and more dysphoric in early PM. Reports overall tolerating [place]. Reports goal of discharging with support from mother or brother, is interested in [facility] referral. Reports overall feeling fearful of OD and harming self if discharged without family support. Objective: Vital Signs Temp Pulse Resp BP Pulse Ox 36.8 C 72 14 112/70 97 03/29/17 06:00 03/29/17 06:00 03/29/17 06:00 03/29/17 06:00 03/29/17 06:00 Alert WF, calm, appears anxious and sad at times, other times smiling with humor. Speech RRR. Mood 'depressed a lot yesterday, no sure why.' Reports yesterday having SI with thoughts of getting a gun and shooting self. Denies SI this AM. Denies HI or violent thoughts. Denies AH or paranoia. Insight limited judgment impaired. Staff report patient quiet, isolative, slept 7.5 hours, able to attend some groups. [place] level 0.5 (after taking 150mg BID for 4 days and 300mg BID for one day). - Time Spent With Patient Time Spent With Patient: 20 minutes - Pending Discharge Pending Discharge Within 24 Hours: No Pending Discharge Within 48 Hours: Yes Pending Discharge Date: 03/31/17 Pending Discharge Time: 11:00 ICD10 Worksheet Patient Problems: Problems Problem Status Onset Borderline personality disorder Acute Major depressive disorder, recurrent episode, severe with mixed features Acute Posttraumatic stress disorder Acute Aspirin overdose Acute Attempted suicide Acute
[2017-03-29] MEDS ORDERED: LITHIUM CARBONATE 300 MG CAP PO ONE (13:00)
[2017-03-29] MEDS ORDERED: LITHIUM CARBONATE 300 MG TAB PO ONE (13:00)
[2017-03-29] MEDS: MIRTAZAPINE 15 MG TAB PO SCH (20:09)
[2017-03-29] MEDS: hydrOXYzine HCL 25 MG TAB PO PRN (20:12)
[2017-03-30] MEDS: MELATONIN 3 MG TAB PO PRN (00:21)
[2017-03-30] MEDS: FERROUS SULFATE 325 MG TAB PO SCH ×2 (09:09→18:05)
[2017-03-30] MEDS: NALTREXONE HCL 50 MG TAB PO SCH (09:09)
[2017-03-30] MEDS: FOLIC ACID 1 MG TAB PO SCH (09:09)
[2017-03-30] MEDS: NICOTINE 21 MG/24 HR PATCH TD SCH (09:09)
[2017-03-30] MEDS: LITHIUM CARBONATE 300 MG TAB PO SCH ×2 (09:10→18:05)
--- NOTE | 2017-03-30 11:34 | SOAPPROG ---
SOAP Progress Note Assessment/Plan: Assessment: Major Depressive Disorder, recurrent, severe with mixed/bipolar features PTSD Borderline PD History of Alcohol Use Disorder - on Naltrexone History of stimulant and cannabis use disorders Recent concussion and seizure following Aspirin/Baclofen OD. 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 Patient has a history of numerous suicide attempts and has severe stressors. Patient has failed to respond to multiple antidepressant trials. Patient appears more calm and less labile today without SI but has a tremor likely related to [place]. Plan: Patient now voluntary Monitor mood stability, risk of self-harm, possible discharge tomorrow if stable Continue Remeron 15mg QHS and Vistaril 50mg QHS for depression, PTSD, insomnia Reduce [place] 300mg BID; recheck level 03/31 Reviewed signs/symptoms of [place] toxicity and long term care phlebotomist side effects Refer to [facility] and [facility] Reviewed completed safety plan with patient, including coping skills, supports, signs of worsening MH, positive activities to improve mood 03/30/17 11:34 Addendum: Spoke to patients mother on phone, in [place], patient signed [place]. Mother reports patients father took [place] 300mg for several years in the past. Mother is a nurse. Discussed assessment and plan and risks/signs of [place] toxicity to monitor. Patient will likely spend Sherita weekend with mother in [place] after discharge. Mother reports patient has spoke to patient several times per day since admission and has reported same assessment/plan as described by this Jesus over the phone, indicating patients memory and overall insight is intact and appropriate. Discussed that patient may have a concussion with mild short term memory deficit that would likely improve with time but patient would benefit from daily support for medication monitoring and assistance in getting to follow up treatment; currently patient prefers that friend Ash provide this support but is considering staying with family in [place] for 1-2 weeks after discharge. 03/30/17 11:41 Subjective: CC: "More hopeful" Patient reports yesterday mostly having stable mood, had brief episodes of dyshoria and thoughts of not wanting to live or being . Denies suicidal thoughts or plans today. Reports in past month having mood swings and racing thoughts but denies sustained episodes of hyperactivity, decreased need for sleep, or sustained elevated mood, or grandiose delusions. Reports chronic depression with brief agitation and episodic intense anxiety in past year. Reports tolerating lithium but noticed a tremor today. Denies nausea, vomiting , sedation, or sleeping excessively. Reports not wanting discharge to a sober living program and wants to return home. Reports both ex-BF and best friend Ash live in house and Ash can assist her in getting to IOP program and getting to pharmacy and follow up appointments. Objective: Vital Signs Temp Pulse Resp BP Pulse Ox 36.5 C 76 14 108/57 L 97 03/30/17 06:00 03/30/17 06:00 03/30/17 06:00 03/30/17 06:00 03/30/17 06:00 Alert WF, erythema under eyes. Calm and pleasant. Trace tremor with extension and writing. Speech RRR. Mood 'more hopeful' affect brief smiling. Thoughts organized. Reports yesterday having thoughts of being , but denies thoughts of or suicide this AM. Denies violent thoughts or HI. Denies AH or paranoia. SLUMS , 07/17 short story memory. Insight fair. Judgment appropriate. Staff report patient calm and attending groups. - Time Spent With Patient Time Spent With Patient: 45 minutes - Pending Discharge Pending Discharge Within 24 Hours: Yes Pending Discharge Date: 03/31/17 Pending Discharge Time: 11:00 ICD10 Worksheet Patient Problems: Problems Problem Status Onset Borderline personality disorder Acute Posttraumatic stress disorder Acute Major depressive disorder, recurrent episode, severe with mixed features Acute Aspirin overdose Acute Attempted suicide Acute
[2017-03-30] MEDS ORDERED: LITHIUM CARBONATE 300 MG TAB PO SCH (13:00)
[2017-03-30] MEDS ORDERED: LITHIUM CARBONATE 300 MG CAP PO SCH (13:00)
[2017-03-30] MEDS: MIRTAZAPINE 15 MG TAB PO SCH (18:06)
--- NOTE | 2017-03-31 09:26 | SOAPPROG ---
SOAP Progress Note Assessment/Plan: Assessment: Major Depressive Disorder, recurrent, severe with mixed/bipolar features PTSD Borderline PD History of Alcohol Use Disorde History of stimulant and cannabis use disorders Recent concussion and seizure following Aspirin/Baclofen OD. 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 Patient has a history of numerous suicide attempts and has severe stressors. Patient has failed to respond to multiple antidepressant trials. Patient reports alcohol cravings and feeling hopeless with brief SI to 'drink myself to .' Three nurses attempted blood draw this AM, unable to draw after 7 attempts. Plan: Patient now voluntary Monitor mood stability, risk of self-harm Continue Remeron 15mg QHS and Vistaril 50mg QHS for depression, PTSD, insomnia Continue [place] 300mg BID; recheck level 04/01, request vocational psychologist from [facility] draw blood Continue Naltrexone for alcohol cravings Start Campral 333mg TID for alcohol cravings. [employer] handout reviewed with patient, discussed risk of sedation Refer to residential substance abuse treatment 03/31/17 09:30 Subjective: "I don't care anymore, I just want to drink myself to " Patient reports feeling hopeless due to alcohol cravings and feeling rejected due to inability to get into a residential program. Reports feeling hopeless after talking on phone yesterday afternoon with a residential program in [place] and was not accepted, was also not accepted to [facility] [facility]. Reports earlier yesterday feeling more stable but had suicidal thoughts and difficulty sleeping overnight. Reports mild tremor but denies excessive sedation or nausea. Reports brief agitation and irritability at times. Objective: Vital Signs Temp Pulse Resp BP Pulse Ox 36.4 C 70 14 113/66 97 03/31/17 06:00 03/31/17 06:00 03/31/17 06:00 03/31/17 06:00 03/31/17 06:00 Alert WF, dysphoric at times. Speech RRR. Mood 'hopeless, I just want to drink myself to ' Affect tearful. Thoughts organized. Reports SI with thoughts of alcohol poisoning. Denies HI or AH. Limited insight. Judgment impaired. Three nurses unable to draw blood this AM, 7 attempts. - Time Spent With Patient Time Spent With Patient: 30 minutes - Pending Discharge Pending Discharge Within 24 Hours: No Pending Discharge Within 48 Hours: No ICD10 Worksheet Patient Problems: Problems Problem Status Onset Borderline personality disorder Acute Major depressive disorder, recurrent episode, severe with mixed features Acute Posttraumatic stress disorder Acute Aspirin overdose Acute Attempted suicide Acute
[2017-03-31] MEDS: LITHIUM CARBONATE 300 MG TAB PO SCH ×2 (10:51→18:59)
[2017-03-31] MEDS: FOLIC ACID 1 MG TAB PO SCH (10:51)
[2017-03-31] MEDS: NICOTINE 21 MG/24 HR PATCH TD SCH (10:51)
[2017-03-31] MEDS: FERROUS SULFATE 325 MG TAB PO SCH ×2 (10:51→19:00)
[2017-03-31] MEDS: NALTREXONE HCL 50 MG TAB PO SCH (10:51)
[2017-03-31] MEDS: ACAMPROSATE CALCIUM 333 MG TAB PO SCH ×2 (12:45→17:39)
[2017-03-31] MEDS: MIRTAZAPINE 15 MG TAB PO SCH (18:59)
[2017-03-31] MEDS: hydrOXYzine HCL 25 MG TAB PO PRN (20:08)
[2017-04-01] MEDS ORDERED: ACAMPROSATE CALCIUM 333 MG TAB PO SCH
[2017-04-01] MEDS ORDERED: MIRTAZAPINE 15 MG TAB PO SCH
[2017-04-01] MEDS ORDERED: hydrOXYzine HCL 50 MG TAB PO SCH
[2017-04-01] MEDS ORDERED: NALTREXONE HCL 50 MG TAB PO SCH
[2017-04-01 06:34] VITALS: BP 111/65; PULSE 76; RESP 18; TEMP 98
[2017-04-01] MEDS: NICOTINE 21 MG/24 HR PATCH TD SCH (10:36)
[2017-04-01] MEDS: FOLIC ACID 1 MG TAB PO SCH (10:37)
[2017-04-01] MEDS: ACAMPROSATE CALCIUM 333 MG TAB PO SCH ×2 (10:37→12:57)
[2017-04-01] MEDS: NALTREXONE HCL 50 MG TAB PO SCH (10:37)
[2017-04-01] MEDS: LITHIUM CARBONATE 300 MG TAB PO SCH (10:37)
[2017-04-01] MEDS: FERROUS SULFATE 325 MG TAB PO SCH (10:37)
[2017-04-01] MEDS ORDERED: GABAPENTIN 300 MG CAP PO PRN (11:34)
[2017-04-01] MEDS ORDERED: hydrOXYzine HCL 25 MG TAB PO PRN (11:35)
--- NOTE | 2017-04-01 11:46 | SOAPPROG ---
SOAP Progress Note Assessment/Plan: Assessment: Major Depressive Disorder, recurrent, severe with mixed/bipolar features PTSD Borderline PD History of Alcohol Use Disorde History of stimulant and cannabis use disorders Recent concussion and seizure following Aspirin/Baclofen OD. 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 Patient has a history of numerous suicide attempts and has severe stressors. Patient has failed to respond to multiple antidepressant trials. Patient has continued SI but reports multiple coping skills to use if discharged home with IOP follow up. Patient has reported frequent alcohol cravings since admit and is motivated for residential substance abuse treatment if available. Plan: Patient now voluntary Monitor mood stability, risk of self-harm Continue Remeron 15mg QHS and Vistaril 50mg QHS for depression, PTSD, insomnia Start Gabapentin 300mg PO QHS for insomnia Continue [place] 300mg BID [place] level pending Continue Naltrexone for alcohol cravings Continue Campral 333mg TID for alcohol cravings, started 03/31 Refer to residential [facility] treatment 04/01/17 11:49 Subjective: CC: "Depressed off and on" "Nervous because I don't know what will happen after here" Patient reports fear of relapsing on alcohol then cutting herself or overdosing. Reports tolerating Campral, may have reduced alcohol cravings. Reports motivation for residential substance abuse treatment. Reports reduced sleep and was taking either Gabapentin or Baclofen for sleep in past 4 months. 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 Denies tremor or nausea or diarrhea. Reports plan to use coping skills to manage self-destructive thought: talking to roommates, playing with dog, exercising, talking to mother or brother on the phone, exercising, journaling, or reading. Patient completed safety plan listing supportive contact persons and coping skills and strengths along with signs/symptoms of worsening mental health. Objective: Vital Signs Temp Pulse Resp BP Pulse Ox 36.6 C 76 18 111/65 97 04/01/17 06:00 04/01/17 06:00 04/01/17 06:00 04/01/17 06:00 04/01/17 06:00 Alert WF, cooperative, some nervous foot tapping. Speech RRR. Mood 'not sure, depressed off and on' affect restricted, brief smiling. Thoughts organized. Reports SI to cut self or OD, denies intent, reports she is unsure if she can use coping skills or will drink alcohol instead. Denies HI or AH or paranoia. insight limited, judgment questionable. Staff report patient had reduced sleep 6 hours liast night, denied SI this AM to staff. - Time Spent With Patient Time Spent With Patient: 20 minutes - Pending Discharge Pending Discharge Within 24 Hours: No Pending Discharge Within 48 Hours: No ICD10 Worksheet Patient Problems: Problems Problem Status Onset Borderline personality disorder Acute Major depressive disorder, recurrent episode, severe with mixed features Acute Posttraumatic stress disorder Acute Aspirin overdose Acute Attempted suicide Acute
[2017-04-01 12:21] LABS: ANION GAP 14 mEq/L (8-16); CALCIUM 9.9 mg/dL (8.5-10.4); CARBON DIOXIDE 24 mEq/l (22-31); CHLORIDE 101 mEq/L (97-110); CREATININE 0.8 mg/dL (0.6-1.0); GLOMERULAR FILTRATION RATE > 60; GLUCOSE 83 mg/dL (70-100); LITHIUM 0.4 mEq/L (0.6-1.2); POTASSIUM 4.6 mEq/L (3.5-5.2); SODIUM 139 mEq/L (134-144)
[2017-04-01] MEDS ORDERED: LITHIUM CARBONATE 300 MG TAB PO SCH ×2 (12:31)
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
[2017-04-01] MEDS ORDERED: GABAPENTIN 300 MG CAP PO SCH ×2 (21:00)
== END 2017-04-01 14:57 | DRG 885 ==
LOC: BBEH 01:00
PROVIDERS: ADMIT Psychiatry & Neurology Behavioral Neurology & Neuropsychiatry
DX: F33.2 Major depressive disorder, recurrent severe without psychotic features (principal); F43.10 Post-traumatic stress disorder, unspecified; F60.3 Borderline personality disorder; D64.9 Anemia, unspecified; F50.9 Eating disorder, unspecified; K59.00 Constipation, unspecified; F10.10 Alcohol abuse, uncomplicated; F14.10 Cocaine abuse, uncomplicated